=== PATIENT | female | born 1975 | race Caucasian/White ===

== ENCOUNTER 2018-04-15 12:21 | Emergency (ER) | payer OTHER ==
[~2018-04-15] VITALS: Ht 172.7 cm; Wt 63.5 kg
[~2018-04-15 12:21] MED LIST: IBUPROFEN 800800 M1 PO; NORCO 5-325 TA1 EACH PO
[2018-04-15 12:44] LABS: URINE BILIRUBIN NEGATIVE (Negative); URINE BLOOD 3+ (Negative); URINE CLARITY CLEAR; URINE COLOR YELLOW; URINE GLUCOSE-RANDOM NEGATIVE (Negative); URINE KETONES NEGATIVE (Negative); URINE LEUKOCYTES-REFLEX NEGATIVE (Negative); URINE NITRITE-REFLEX NEGATIVE (Negative); URINE PROTEIN NEGATIVE (Negative); URINE UROBILINOGEN 0.2 E.U./dl (0.2-1.0)
[2018-04-15 12:50] LABS: ABSOLUTE BASOPHILS 0.1 thou/uL (0.0-0.2); ABSOLUTE EOSINOPHILS 0.1 thou/uL (0.0-0.7); ABSOLUTE LYMPHOCYTES 1.6 thou/uL (0.8-5.3); ABSOLUTE MONOCYTES 0.5 thou/uL (0.0-1.2); ABSOLUTE NEUTROPHILS 7.2 thou/uL (1.6-8.1); BASOPHILS 0.6 %; EOSINOPHILS 0.8 %; HEMATOCRIT 36.6 % (37.0-47.0); HEMOGLOBIN 12.4 gm/dL (12.0-15.0); LYMPHOCYTES 17.2 %; MCH 33.2 pg (26.0-34.0); MCV 97.8 fL (80.0-100.0); MONOCYTES 5.4 %; NUCLEATED RBCS 0 /100WBC; PLATELET COUNT* 247 thou/uL (150-400); RBC 3.74 mil/uL (4.20-5.00); RDW-CV 12.2 % (10.5-14.5); WBC 9.5 thou/uL (4.0-11.0)
[2018-04-15 12:54] LABS: AMORPHOUS URATES Few /LPF (None Seen); BACTERIA-REFLEX 1-9 Few /HPF (None Seen); CASTS None Seen /LPF (None Seen); MUCUS 4-6 Moderate strn/LPF (None Seen); SQUAMOUS 0-3 Few /LPF (0-3); URINE WBC-REFLEX 0-5 Rare /HPF (0-5)
[2018-04-15 14:29] VITALS: BP 107/61
== END 2018-04-15 14:41 | disposition home or self-care (01) ==
LOC: M.ERS 12:21
PROVIDERS: Nurse Practitioner Family
DX: O20.0 Threatened abortion (principal); Z3A.13 13 weeks gestation of pregnancy